=== PATIENT | female | born 1985 | race Two or more races ===

== ENCOUNTER 2020-05-17 01:17 | Emergency (ER) | payer MEDICAID ==
[~2020-05-17] VITALS: Ht 157.5 cm; Wt 59.0 kg
[2020-05-17 01:53] VITALS: BP 135/75
[2020-05-17] MEDS ORDERED: IBUPROFEN 600MG TABLET PO ONE (03:00)
== END 2020-05-17 03:22 | disposition home or self-care (01) ==
LOC: ER 01:17
DX: S43.401A Unspecified sprain of right shoulder joint, initial encounter (principal); Y93.72 Activity, wrestling; Y92.9 Unspecified place or not applicable
CPT/HCPCS: 29240; 73030; 99283